=== PATIENT | male | born 1940 | race Caucasian/White ===

== ENCOUNTER 2022-01-23 19:20 | Observation (INO) | payer MEDICARE, SELFPAY ==
[2022-01-23] VITALS (9 sets, daily range): BP systolic 132–149; BP diastolic 58–72; PULSE 86–100; RESP 17–25; TEMP 37.4; O2SAT 89–97
--- NOTE | ~2022-01-23 | XR_ITS ---
EXAMINATION: XR chest 1V portable Exam Date/Time: 01/23/2022 20:15 CDT HISTORY: covid+ 01/22/22,SOB,WEAKNESS,LOW 02 AT HOME Comparison: 06/22/2008. RESULT: Lines, tubes, and devices: Left axillary surgical clips. Lungs and pleura: Senescent changes, otherwise clear. Cardiomediastinal silhouette: Stable cardiomediastinal silhouette. Other: No acute osseous or upper abdominal finding. IMPRESSION: No acute cardiopulmonary process. Reviewed, dictated and finalized at location K.
--- NOTE | 2022-01-23 20:30 | ED.SOB ---
HPI - SOB/Dyspnea General Chief Complaint: Shortness of Breath/Dyspnea Stated Complaint: SOB, COVID + Time Seen by Provider: 01/23/22 19:32 History of Present Illness HPI Narrative: Patient is an 81-year-old male who presents to the ER with shortness of breath. Worsening over the last 2 days. Associate with cough. Tested positive for COVID-19 2 days ago. He is having fevers and chills. He feels extremely weak and has trouble ambulating due to this. No chest pain or chest pressure. He is vaccinated against COVID. No loss of taste or smell. Related Data Home Medications Medication Instructions Recorded Confirmed Vitamin B-12 1,000 mcg PO DAILY 01/23/22 01/23/22 Vitamin D3 2,000 unit BYMOUTH DAILY 01/23/22 01/23/22 aspirin 81 mg PO DAILY 01/23/22 01/23/22 atenolol 25 mg tablet 12.5 mg PO DAILY 01/23/22 01/23/22 atorvastatin 20 mg tablet 20 mg PO DAILY 01/23/22 01/23/22 carbidopa ER 50 mg-levodopa 200 mg 1 tablet PO BID 01/23/22 01/23/22 tablet,extended release clonazepam 0.5 mg tablet 0.5 mg PO DAILY 01/23/22 01/23/22 ketoconazole 2 % shampoo 1 ea topical DAILY 01/23/22 01/23/22 losartan 25 mg tablet 25 mg PO DAILY 01/23/22 01/23/22 pramipexole 0.5 mg tablet 1 tablet PO TID 01/23/22 01/23/22 valsartan 40 mg tablet 40 mg PO DAILY 01/23/22 01/23/22 Allergies Allergy/AdvReac Type Severity Reaction Status Date / Time No Known Allergies Allergy Mild Verified 01/23/22 19:46 Review of Systems Review of Systems: All systems reviewed & are unremarkable except as noted in HPI and below Constitutional: Constitutional: Reports chills, Reports fatigue and Reports fever(s) ENT: Denies nasal congestion and Denies sore throat Cardiovascular: Cardiovascular: Denies chest pain, Denies rapid heart rate and Denies radiating jaw, neck or arm pain Respiratory: Respiratory: Reports cough, Reports dyspnea and Denies wheezing Gastrointestinal: Gastrointestinal: Denies abdominal pain, Denies diarrhea, Denies nausea and Denies vomiting Integumentary/Breasts: Skin/Breast: Denies erythema and Denies rash Neurologic: Denies headache(s), Denies focal weakness and Denies numbness PMFSH Past Medical History Medical History (Updated 01/23/22 @ 22:16 by Matthias Aldridge MD) Coronary artery disease Hypercholesterolemia Hypertension Surgical History Surgical History (Updated 01/23/22 @ 20:35 by Matthias Aldridge MD) History of cholecystectomy History of percutaneous coronary intervention History of tonsillectomy Social History Social History (Updated 01/23/22 @ 20:35 by Matthias Aldridge MD) Smoking status: Former smoker Exam Narrative: GENERAL: Well-appearing, well-nourished, and in no acute distress. HEAD: Normocephalic, atraumatic. EYES: PERRL and EOMI. CHEST: Clear to auscultation. No respiratory distress. HEART: Regular rate and rhythm. Normal peripheral pulses. ABDOMEN: Soft, nontender, nondistended. EXTREMITIES: Normal range of motion. No edema. SKIN: Warm, dry, no rash. NEURO: Alert and oriented x3. PSYCH: Normal mood and affect. Course Course Emergency Course: Patient was pulse oximeter reading of 88 and 89% while sitting in the room. Will give Decadron and plan admission to hospitalist service for additional treatment. Vital Signs Vital signs: Vital Signs Temperature 99.3 F 01/23/22 19:24 Pulse Rate 100 01/23/22 19:24 Respiratory Rate 18 01/23/22 19:24 Blood Pressure 147/67 H 01/23/22 19:24 Pulse Oximetry 93 01/23/22 19:24 Oxygen Delivery Room Air 01/23/22 19:24 Temperature 99.3 F 01/23/22 19:24 Pulse Rate 86 01/23/22 21:22 Respiratory Rate 17 01/23/22 21:22 Blood Pressure 147/72 H 01/23/22 21:22 Pulse Oximetry 96 01/23/22 21:22 Oxygen Delivery Nasal Cannula 01/23/22 20:31 Oxygen Flow Rate 2 01/23/22 20:31 MDM - SOB/Dyspnea Lab Data Result diagrams: 01/23/22 20:29 01/23/22 20:29 Labs: Lab Results 01/23
[2022-01-23 20:38] LABS: Basophils Percent Auto 0.2 % (0.2-1.2); Hematocrit 41.6 % (42.0-52.0); Hemoglobin 13.7 g/dL (14.0-18.0); Immature Granulocyte Absolute 0.04 K/mm3 (0.00-0.031); Immature Granulocyte Percent A 0.4 % (0-0.5); Immature Platelet Fraction Pct 4.1 % (0.9-11.2); Lymphocytes Absolute Auto 0.62 K/mm3 (0.9-3.2); Lymphocytes Percent Auto 6.7 % (18.3-44.2); Mean Corpuscular HGB Conc 32.9 g/dl (32-36); Mean Corpuscular Volume 94.1 fl (80-100); Mean Platelet Volume 10.1 fl (7.4-10.4); Monocytes Absolute Auto 1.4 K/mm3 (0.1-0.6); Monocytes Percent Auto 14.9 % (2.6-8.5); Neutrophils Absolute Auto 7.2 K/mm3 (1.3-6.7); Neutrophils Percent Auto 77.8 % (45.5-73.1); Platelet Count Result 111 k/mm3 (150-375); Red Blood Count 4.42 M/mm3 (4.6-6.20); Red Cell Distribution Width 13.1 % (11.5-14.5); White Blood Count 9.2 K/mm3 (4.5-10.0)
[2022-01-23 20:50] LABS: Alanine Aminotransferase 10 U/L (6-50); Albumin Level 4.2 g/dL (3.5-5.1); Alkaline Phosphatase 65 U/L (38-126); Anion Gap 7 mmol/L (8-16); Aspartate Amino Transferase 30 U/L (17-59); Bilirubin,Total 1.1 mg/dL (0.2-1.3); Blood Urea Nitrogen 16 mg/dL (9-20); CRP 5.4 mg/dL (<1.0); Calcium 8.3 mg/dL (8.4-10.2); Carbon Dioxide 26 mmol/L (22-30); Chloride 99 mmol/L (98-107); Estimated CRCL calculation 88 ml/min; Estimated Glomerular Filt Rate > 60; Glucose 127 mg/dL (65-110); Potassium 3.8 mmol/L (3.4-5.0); Sodium 132 mmol/L (137-145)
[2022-01-23 21:13] LABS: SARS-CoV-2 RNA PCR Positive
[2022-01-23 21:33] LABS: Erythrocyte Sedimentation Rate 15 mm/hr (0-20)
--- NOTE | 2022-01-23 23:19 | PC.NURSE ---
Attempted to call nitin marin no answer
[2022-01-24] VITALS (14 sets, daily range): BP systolic 103–162; BP diastolic 52–74; PULSE 57–86; RESP 14–20; TEMP 36–36.7; O2SAT 94–98; BMI 34.4
--- NOTE | 2022-01-24 00:06 | ADMGEN ---
This patient, Kedar Zhang, was admitted to 3 [facility] Surg Room 302-01 at 0000. Patient/family oriented to hospital policies and general routines including ID bracelet, bed and alarms, visiting hours, pain management, procedures, bathroom and other care routines, personal items, smoking policy, room service/diet, and visiting hours. Information on how to activate the Rapid Response Team has been discussed. Patient/Family are encouraged to report perceived risks to care and to ask questions if they do not understand what they are told or what they should do.
--- NOTE | 2022-01-24 05:30 | PM.IMHP ---
H&P: HPI History of Present Illness Date/Time: 01/24/22 06:00 Chief Complaint: Shortness of breath, COVID Narrative: 81-year-old male with past medical history of coronary disease, hyper lipidemia, hypertension and obstructive sleep apnea who presented to the ER for with worsening shortness of breath. The patient has been having COVID symptoms since the holiday weekend. His daughter is a nurse and tested him for COVID which is positive on the . He has been having associated fevers and chills and dry cough. He has had difficulty ambulating due to weakness. He has received his COVID vaccine and 1 booster. He has not received a 2nd booster. 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 The patient was quite somnolent and would fall asleep in the middle of answering questions. Nursing staff was able to get some history from the patient's . The patient denies any chest pain. He denies any history of lung disease but does have a significant history of smoking although he quit in 1997. The patient reports that he has been having some body aches but not as bad as when he has the flu. He denies having any fevers. He denies any known ill contacts but recently drove up here from [place] to visit family members. He has chronic constipation and thinks that is been about a week since he had a bowel movement. He denies any abdominal pain. He has been having a sore throat for the last couple of days. He denies difficulty swallowing. Review of Systems Review of Systems: Twelve point review of systems was attempted but limited due to the patient's degree of somnolence and history of Parkinson's related dementia. Pertinent positives and negatives are listed in HPI. Patient denies dysuria, incomplete bladder emptying, abdominal pain, or diarrhea. [facility] Past Medical History Medical History (Updated 01/24/22 @ 07:04 by Glendy Barry DO) Chronic constipation Coronary artery disease Dementia associated with Parkinson's disease Hypercholesterolemia Hyperlipidemia Hypertension Obstructive sleep apnea on CPAP Parkinson's disease Polyneuropathy Surgical History Surgical History History of cholecystectomy History of percutaneous coronary intervention History of tonsillectomy Family History Family History Mother Cerebrovascular accident Sibling Parkinsons Sibling Dementia Social History Social History (Updated 01/24/22 @ 06:55 by Glendy Barry DO) Social History: He reports that his by where to his current for 22 years. He lives in [facility] and is here visiting family. He does drink frequently. It is unclear if he drinks 1 or 2 alcoholic beverages a week or 1-3 alcoholic beverages a day. 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 He has 2 biologic children and 2 step children. Smoking packs per day: 0.5 Smoking cigarettes per day: 10.0 Years smoked: 40 Smoking pack-years: 20.00 Smoking status: Former smoker Tobacco type: cigarettes Alcohol intake: current Drinks per week: 2 Substance use: never Spiritual care concerns: No Meds Home Medications and Allergies Home Medications Medication Instructions Recorded Confirmed Type Vitamin B-12 1,000 mcg PO DAILY 01/23/22 01/23/22 History Vitamin D3 2,000 unit BYMOUTH DAILY 01/23/22 01/23/22 History aspirin 81 mg PO DAILY 01/23/22 01/23/22 History atenolol 25 mg tablet 12.5 mg PO DAILY 01/23/22 01/23/22 History atorvastatin 20 mg tablet 20 mg PO DAILY 01/23/22 01/23/22 History carbidopa ER 50 mg-levodopa 200 mg 1 tablet PO BID 01/23/22 01/23/22 History tablet,extended release clonazepam 0.5 mg tablet 0.5 mg PO DAILY 01/23/22 01/23/22 History ketoconazole 2 % shampoo 1 ea topical DAILY 01/23/22 01/23/22 History losartan 25 mg tablet 25 mg PO DAILY 01/23/22 01/23/22 Hi
[2022-01-24 07:05] LABS: Alveolar/Arterial O2 Gradient 75.1 mmHg; Base Excess ABG 1.2 mEq/l (+/-2.0); Carboxyhemoglobin 0.3 % THb (0-2.0); Device NASAL CANNULA; Fractional Inspired Oxygen 30 %; HCO3 ABG 26.9 mEq/l (22.0-26.0); Liters per Minute 2.5 LPM; Methemoglobin ABG 0.4 %THb (0-1.5); Oxygen Content ABG 20.8 %vol (16.0-22.0); Oxygen Saturation ABG 96.1 % (95.0-100.0); Oxyhemoglobin 95.3 % THb (90.0-100.0); PCO2 ABG 46.3 mmHg (35.0-45.0); PO2 ABG 84.4 mmHg (80.0-100.0); PO2 FiO2 Ratio Arterial Blood 2.81 %; Site Drawn RIGHT BRACHIAL; Total Hemoglobin 15.5 g/dL (12.0-18.0); pH ABG 7.382 (7.350-7.450)
[2022-01-24] MEDS: ASPIRIN 81 MG CHEWABLE TABLET PO (08:53)
[2022-01-24] MEDS: PRAMIPEXOLE 0.5 MG TABLET PO ×3 (08:53→18:11)
[2022-01-24] MEDS: CYANOCOBALAMIN 1,000 MCG TABLET 1000 MCG PO (08:53)
[2022-01-24] MEDS: CHOLECALCIFEROL 1,000 UNITS TABLET 2000 UNITS BY MOUTH (08:53)
[2022-01-24] MEDS: atenoloL 12.5 MG TABLET PO (08:54)
[2022-01-24] MEDS: VALSARTAN 40 MG TABLET PO (08:54)
[2022-01-24] MEDS: LOSARTAN POTASSIUM 25 MG TABLET PO (08:54)
[2022-01-24] MEDS: ENOXAPARIN 40 MG/0.4 ML SYRINGE SUB-Q (08:54)
[2022-01-24] MEDS: ATORVASTATIN 20 MG TABLET PO (08:54)
[2022-01-24] MEDS: ACETAMINOPHEN 325 MG TABLET 650 MG PO (08:57)
[2022-01-24] MEDS: polyethylene glycoL 3350 17 GM POWD.PACK PO (08:58)
[2022-01-24] MEDS: clonazePAM (*CRX) 0.5 MG TABLET PO (09:11)
[2022-01-24] MEDS: CARBIDOPA/LEVODOPA 25/100 MG CR TABLET 2 TABLET PO ×2 (11:53→21:14)
--- NOTE | 2022-01-24 14:14 | PM.IMPN ---
Progress Note: A&P Assessment and Plan (1) Acute respiratory failure with hypoxia: Code(s): J96.01 - Acute respiratory failure with hypoxia Status: Acute Assessment and Plan: Secondary to COVID-19 pneumonia. Hypoxic on presentation at 89% Currently requiring 1.5 L supplemental O2 Continue to wean oxygen as tolerated (2) COVID: Code(s): U07.1 - COVID-19 Status: Acute Assessment and Plan: Positive home COVID test on 01/22/22. Confirmatory PCR at this facility positive on 01/23 CXR does not show acute pneumonia Continue with Dexamethasone #2 today Supportive care to include expectorants, bronchodilators, incentive spirometry, Cornet Completed COVID vaccination with 1 booster (3) Obstructive sleep apnea on CPAP: Code(s): G47.33 - Obstructive sleep apnea (adult) (pediatric); Z99.89 - Dependence on other enabling machines and devices Status: Acute Assessment and Plan: Continue home CPAP (4) Chronic constipation: Code(s): K59.09 - Other constipation Status: Acute Assessment and Plan: Resolved Patient with episode of loose stool today Continue with prn Miralax and Colace to maintain regular bowel regimen (5) Dementia associated with Parkinson's disease: Code(s): G20 - Parkinson's disease; F02.80 - Dementia in other diseases classified elsewhere without behavioral disturbance Status: Acute Assessment and Plan: No acute issues, patient is A&Ox4 today Continue carbidopa-levodopa Subjective Date/time seen: 01/24/22 14:14 Interval history: Date of service: 01/24/2022 Kedar Zhang is an 81-year-old male with a history of Parkinson's disease with associated dementia, SHOBHA on CPAP, hypertension, hyperlipidemia, CAD, and chronic constipation who is seen in follow-up for COVID-19 pneumonia. He states he feels better today. He continues to endorse cough occasionally productive of clear-white sputum. He denies shortness of breath or dyspnea on exertion. Denies wheezing. He is feeling run down and fatigued. His appetite has been fair. He denies loss of taste or smell. He had been constipated and had not had a bowel movement in over 1 week but this morning he had an episode of diarrhea after receiving laxatives. He denies abdominal pain, nausea, or vomiting. Denies chest pain or palpitations. He has been able to ambulate around the room without difficulty. Review of Systems Review of Systems: All systems reviewed & are unremarkable except as noted in HPI and below Exam Narrative: General: Well-nourished, well-appearing 81-year-old male, sitting up in bed, comfortable, NARD Neuro: awake, alert and oriented x4, speech clear, no focal neuro deficits noted, able to follow all commands and respond all questions appropriately, occasional difficulty with word finding HEENMT: normocephalic, atraumatic, EOMI, sclerae anicteric, moist oral mucosa Respiratory: clear to auscultation bilaterally, nonlabored breathing Cardio: regular rate, regular rhythm with S1-S2 Abdomen: nondistended, normoactive bowel sounds, soft, nontender to palpation Extremities: no edema, erythema, or tenderness to palpation, DP pulses 2+ bilaterally Skin: no rashes or lesions, warm and dry Psych: appropriate mood and affect, judgment and insight fair Objective Data Vital Signs Vital Signs: Vital Signs - 24 hr 01/23/22 19:24 01/23/22 19:42 01/23/22 19:42 Temperature 99.3 F Pulse Rate 100 90 Respiratory Rate 18 Blood Pressure 147/67 H Pulse Oximetry 93 92 Oxygen Delivery Room Air Room Air Oxygen Flow Rate 01/23/22 19:42 01/23/22 20:31 01/23/22 20:31 Temperature Pulse Rate 96 Respiratory Rate 23 H Blood Pressure 149/64 H Pulse Oximetry 92 89 L 97 Oxygen Delivery Room Air Nasal Cannula Oxygen Flow Rate 2 01/23/22 20:35 01/23/22 20:01 01/23/22 20:02 Temperature Pulse Rate 86 93 94 Respirator
[2022-01-24] MEDS: guaiFENesin 12 HR 600 MG TABCR PO (21:14)
[2022-01-24] MEDS: ALBUTEROL SULFATE (*SP) INHALER 2 PUFF INHALATION (22:25)
[2022-01-25] VITALS (10 sets, daily range): BP systolic 115–130; BP diastolic 50–69; PULSE 51–68; RESP 18–19; TEMP 36–36.6; O2SAT 92–97
[2022-01-25] MEDS: ALBUTEROL SULFATE (*SP) INHALER 2 PUFF INHALATION ×3 (03:14→14:49)
[2022-01-25 05:46] LABS: Hemoglobin 14.5 g/dL (14.0-18.0); Mean Corpuscular Hemoglobin 30.6 pg (26-34); Mean Corpuscular Volume 92.8 fl (80-100); Platelet Count Result 133 k/mm3 (150-375); Red Blood Count 4.74 M/mm3 (4.6-6.20); Red Cell Distribution Width 13.2 % (11.5-14.5); White Blood Count 10.2 K/mm3 (4.5-10.0)
[2022-01-25 05:57] LABS: Anion Gap 6 mmol/L (8-16); Blood Urea Nitrogen 29 mg/dL (9-20); CRP 4.2 mg/dL (<1.0); Calcium 9.3 mg/dL (8.4-10.2); Carbon Dioxide 26 mmol/L (22-30); Chloride 102 mmol/L (98-107); Estimated CRCL calculation 78 ml/min; Estimated Glomerular Filt Rate > 60; Glucose 144 mg/dL (65-110); Lactate Dehydrogenase 608 U/L (313-618); Potassium 4.1 mmol/L (3.4-5.0); Sodium 134 mmol/L (137-145)
[2022-01-25] MEDS: CARBIDOPA/LEVODOPA 25/100 MG CR TABLET 2 TABLET PO (08:51)
[2022-01-25] MEDS: PRAMIPEXOLE 0.5 MG TABLET PO ×2 (08:51→13:37)
[2022-01-25] MEDS: ATORVASTATIN 20 MG TABLET PO (08:51)
[2022-01-25] MEDS: ASPIRIN 81 MG CHEWABLE TABLET PO (08:51)
[2022-01-25] MEDS: CHOLECALCIFEROL 1,000 UNITS TABLET 2000 UNITS BY MOUTH (08:51)
[2022-01-25] MEDS: ENOXAPARIN 40 MG/0.4 ML SYRINGE SUB-Q (08:51)
[2022-01-25] MEDS: CYANOCOBALAMIN 1,000 MCG TABLET 1000 MCG PO (08:52)
[2022-01-25] MEDS: guaiFENesin 12 HR 600 MG TABCR PO (08:52)
[2022-01-25] MEDS: LOSARTAN POTASSIUM 25 MG TABLET PO (08:52)
[2022-01-25] MEDS: atenoloL 12.5 MG TABLET PO (08:53)
[2022-01-25] MEDS: clonazePAM (*CRX) 0.5 MG TABLET PO (08:58)
--- NOTE | 2022-01-25 12:46 | HOMEO2EVAL ---
Evaluation was performed at [facility] Home Oxygen Evaluation RC: Home Oxygen (O2) Evaluation Start: 01/25/22 10:27 Freq: ONCE Status: Active Protocol: RPE Activity Type Activity Date Activity User E-sign Co-sign Detail Recorded Client Recorded Date Recorded By Document 01/25/22 12:00 FREYA [id number] 01/25/22 12:46 FREYA Document 01/25/22 12:05 FREYA [id number] 01/25/22 12:46 FREYA Document 01/25/22 12:15 FREYA [id number] 01/25/22 12:46 FREYA 01/25/22 01/25/22 01/25/22 12:00 12:05 12:15 Home O2 Evaluation Test Phase Resting Exercise Resting Oxygen Delivery Room Air Room Air Room Air Pulse Oximetry (90-100 %) 96 92 95 Home Oxygen Evaluation Comments No home O2 needed Treatment Charges O2 Evaluation - Inpatient
--- NOTE | 2022-01-25 12:46 | PCRCNOTE ---
Home o2 eval complete. No home o2 needed at this time. RN notified.
--- NOTE | 2022-01-25 14:33 | PM.DS ---
DS: Admitting Diagnosis Discharge Date 01/25/2022 Admitting Diagnosis COVID-19 DS: Discharge Diagnosis Discharge Diagnosis (1) Acute respiratory failure with hypoxia: Code(s): J96.01 - Acute respiratory failure with hypoxia Status: Acute Assessment and Plan: Secondary to COVID-19 pneumonia. Hypoxic on presentation at 89% Required up to 3 L supplemental O2 Slowly weaned to room air Home O2 eval performed on 01/25/2022. Patient does not require supplemental oxygen (2) COVID: Code(s): U07.1 - COVID-19 Status: Acute Assessment and Plan: Positive home COVID test on 01/22/22. Confirmatory PCR at this facility positive on 01/23 CXR did not show acute pneumonia Received 3 doses of dexamethasone during admission Supportive care provided including expectorants, bronchodilators, incentive spirometry, Cornet Completed COVID vaccination with 1 booster. He can receive his 2nd booster 90 days following acute infection (3) Obstructive sleep apnea on CPAP: Code(s): G47.33 - Obstructive sleep apnea (adult) (pediatric); Z99.89 - Dependence on other enabling machines and devices Status: Acute Assessment and Plan: Continue home CPAP (4) Chronic constipation: Code(s): K59.09 - Other constipation Status: Acute Assessment and Plan: Resolved Continue with prn Miralax and Colace to maintain regular bowel regimen (5) Dementia associated with Parkinson's disease: Code(s): G20 - Parkinson's disease; F02.80 - Dementia in other diseases classified elsewhere without behavioral disturbance Status: Acute Assessment and Plan: No acute issues, patient was A&Ox4 during encounters Continue carbidopa-levodopa DS: Summary Hospital Course Hospital Course: Date of admission: 01/23/2022 Date of discharge: 01/25/2022 Kedar Zhang is an 81-year-old male with a history of Parkinson's disease with associated dementia, SHOBHA on CPAP, hypertension, hyperlipidemia, CAD, and chronic constipation?who presented to the emergency department on 01/23/2022 with complaints of shortness of breath after having an at home positive COVID test 2 days ago. On presentation to the ED, his COVID PCR was positive, CXR without acute cardiopulmonary process. He was admitted to the hospitalist service for further evaluation and management. Please see above for further details. He was treated with supplemental oxygen and dexamethasone with overall clinical improvement. He was able to be weaned from oxygen and had no indication for home O2. He was feeling significantly improved and was eager for discharge home. He and his are visiting family in this area from their home in [place]. On the day of discharge, he learned that his had also tested positive for COVID. I spoke with him and his (who was present for conversation via speaker phone) regarding necessary isolation precautions. Given the patient's overall improvement, he was determined to no longer require inpatient care. Discussed with the patient worrisome signs and symptoms for which to return. He was discharged in hemodynamically stable condition on 01/25/2022. Status at Discharge Overall status at discharge: patient is progressing back to baseline Time Spent with Patient Time attestation: Total time spent providing and/or coordinating discharge services: 45 minutes Time spent: Greater than 30 minutes Exam Narrative: General: Well-nourished, well-appearing 81-year-old male, sitting up in bed, comfortable, NARD Neuro: awake, alert and oriented x4, speech clear, no focal neuro deficits noted HEENMT: normocephalic, atraumatic, EOMI, sclerae anicteric, moist oral mucosa Respiratory: clear to auscultation bilaterally, nonlabored breathing Cardio: regular rate, regular rhythm with S1-S2 Abdomen: nondistended, normoactive bowel sounds, soft, nontender to palpation Extremities: no edema, erythema,
== END 2022-01-25 16:20 | disposition home or self-care (01) ==
LOC: ANHED 22:16 → ANH3MEDSUR 01-24 07:56
PROVIDERS: Admitting Provider Internal Medicine; Emergency Provider Emergency Medicine; PCP Internal Medicine; Visit Provider Physician Assistant
DX: U07.1 COVID-19 (principal); J96.01 Acute respiratory failure with hypoxia; I25.10 Atherosclerotic heart disease of native coronary artery without angina pectoris; I10 Essential (primary) hypertension; E78.00 Pure hypercholesterolemia, unspecified; R53.1 Weakness; G20 Parkinson's disease; F02.80 Dementia in other diseases classified elsewhere, unspecified severity, without behavioral disturbance, psychotic disturbance, mood disturbance, and anxiety; E78.5 Hyperlipidemia, unspecified; G47.33 Obstructive sleep apnea (adult) (pediatric); K59.09 Other constipation; G62.9 Polyneuropathy, unspecified; Z79.82 Long term (current) use of aspirin; Z87.891 Personal history of nicotine dependence; Z99.89 Dependence on other enabling machines and devices
CPT/HCPCS: 36415; 36600; 71045; 80048; 80053; 82375; 82805; 83050; 83615; 85025; 85027; 85055; 85652; 86140; 94618; 94640; 94667; 96372; 96374; 99285; A9270; C9803; G0378; J1100; J1650; U0003; U0005